=== PATIENT | male | born 1940 | race Caucasian/White ===

== ENCOUNTER 2017-08-08 20:04 | Day surgery (SDC) | payer MEDICARE ==
[~2017-08-08] VITALS: Ht 177.8 cm; Wt 92.0 kg
[2017-08-08 16:15] VITALS: BP 131/80
[2017-08-08 16:49] LABS: MICROSCOPIC NOT IND
[2017-08-08] MEDS: FENTANYL PF 100 MCG/2ML IV PRN ×2 (18:43→18:55)
[~2017-08-08 20:04] MED LIST: ACETAMINOPHEN 325 MG TABLET PO PRN; ALBUTEROL SULFATE 2.5 MG/3 ML NPPB PRN; ALLO100T64 PO; ALLO300T80 PO; CEFAZOLIN 1,000 MG ONE; DESMOPRESSIN 28 MCG in SODIUM CHLORIDE 0.9% 50 ML IVPB ONE; DEXAMETHASONE 4 MG/ML, 1ML ONE; FENTANYL PF 100 MCG/2ML ONE; GLUC1CAP48 PO; LABETALOL 5MG/ML, 20ML IV PRN; LACTATED RINGERS 1,000 ML IV SCH; LEVO75TA5 PO; LISI2.5T PO; MEPERIDINE/PF 25MG/0.5ML IVPush PRN; MIDAZOLAM 1 MG/ML, 2ML IV PRN; MIDAZOLAM 1 MG/ML, 2ML ONE; MITOMYCIN 40 MG, WATER FOR INJECTION,STERILE 40 ML in SYRINGE 1 EA INTVESIC ONE; MULT-257 PO; ONDANSETRON 2MG/ML, 2ML IVPush PRN; ONDANSETRON 2MG/ML, 2ML ONE; OXYcodone 5 MG/5 ML ORAL.SOL UDC ONE; OXYcodone 5 MG/5 ML ORAL.SOL UDC PO PRN; PROMETHAZINE 12.5 MG SUPP PR PRN; PROPOFOL 10 MG/ML, 20ML ONE; ROCURONIUM 10 MG/ML,10ML ONE; SIMV5TAB5 PO; SUCCINYLCHOLINE 20 MG/ML, 10ML ONE; VASOPRESSIN 20 UNIT/ML, 1ML ONE; hydrALAzine 20 MG/ML, 1ML IV PRN; morphine SULFATE 10 MG/ML, 1ML IV PRN
== END 2017-08-08 23:25 | disposition home or self-care (01) ==
LOC: OUT 20:04 → 4NOR 20:10 → OUT 23:25
PROVIDERS: ATTEND Student in an Organized Health Care Education/Training Program
DX: C67.0 Malignant neoplasm of trigone of bladder (principal); N32.89 Other specified disorders of bladder; R31.0 Gross hematuria; Z79.899 Other long term (current) drug therapy; I10 Essential (primary) hypertension; E03.8 Other specified hypothyroidism; E78.4 Other hyperlipidemia
CPT/HCPCS: 51720; 52235; 81003; 87086; 88305; 93005; J0330; J0690; J1100; J2250; J2405; J2704; J3010; J7120; 88341; 88342; G0461

== ENCOUNTER → 2017-08-24 | Outpatient (CLI) | payer MEDICARE ==
[~2017-08-24] MED LIST changes: -ACETAMINOPHEN 325 MG TABLET PO PRN; -ALBUTEROL SULFATE 2.5 MG/3 ML NPPB PRN; -CEFAZOLIN 1,000 MG ONE; -DESMOPRESSIN 28 MCG in SODIUM CHLORIDE 0.9% 50 ML IVPB ONE; -DEXAMETHASONE 4 MG/ML, 1ML ONE; -FENTANYL PF 100 MCG/2ML ONE; -LABETALOL 5MG/ML, 20ML IV PRN; -LACTATED RINGERS 1,000 ML IV SCH; -MEPERIDINE/PF 25MG/0.5ML IVPush PRN; -MIDAZOLAM 1 MG/ML, 2ML IV PRN; -MIDAZOLAM 1 MG/ML, 2ML ONE; -MITOMYCIN 40 MG, WATER FOR INJECTION,STERILE 40 ML in SYRINGE 1 EA INTVESIC ONE; -ONDANSETRON 2MG/ML, 2ML IVPush PRN; -ONDANSETRON 2MG/ML, 2ML ONE; -OXYcodone 5 MG/5 ML ORAL.SOL UDC ONE; -OXYcodone 5 MG/5 ML ORAL.SOL UDC PO PRN; -PROMETHAZINE 12.5 MG SUPP PR PRN; -PROPOFOL 10 MG/ML, 20ML ONE; -ROCURONIUM 10 MG/ML,10ML ONE; -SUCCINYLCHOLINE 20 MG/ML, 10ML ONE; -VASOPRESSIN 20 UNIT/ML, 1ML ONE; -hydrALAzine 20 MG/ML, 1ML IV PRN; -morphine SULFATE 10 MG/ML, 1ML IV PRN
== END | disposition home or self-care (01) ==
LOC: PETCFH 08:56
PROVIDERS: ATTEND Student in an Organized Health Care Education/Training Program
DX: C67.9 Malignant neoplasm of bladder, unspecified (principal); N28.1 Cyst of kidney, acquired; J98.4 Other disorders of lung; K57.30 Diverticulosis of large intestine without perforation or abscess without bleeding
CPT/HCPCS: 78815; A9552

== ENCOUNTER → 2018-01-18 | Outpatient (CLI) | payer MEDICARE ==
[~2018-01-18] MED LIST changes: +OMNIPAQUE 350 MG/ML, 100ML BOTTLE ONE
[2018-01-18 11:27] LABS: BASOPHILS # (AUTO) 0.02 x10^3/uL (0-0.1); BASOPHILS % (AUTO) 0 % (0-1); EOSINOPHILS # (AUTO) 0.12 x10^3/uL (0-0.4); EOSINOPHILS % (AUTO) 2 % (1-7); LYMPHOCYTES # (AUTO) 1.75 x10^3/uL (1-3.4); LYMPHOCYTES % (AUTO) 30 % (22-44); MD NO; MEAN CORPUSCULAR HEMOGLOBIN 28.4 pg (27.5-34.5); MEAN CORPUSCULAR HGB CONC 33.3 g/dL (33.2-36.2); MEAN CORPUSCULAR VOLUME 85.3 fL (81-97); MEAN PLATELET VOLUME 9.1 fL (7.4-10.4); MONOCYTES # (AUTO) 0.49 x10^3/uL (0.2-0.8); MONOCYTES % (AUTO) 8 % (2-9); NEUTROPHILS # (AUTO) 3.42 x10^3/uL (1.8-6.8); NEUTROPHILS % (AUTO) 59 % (42-75); PLATELET COUNT 201 x10^3/uL (130-400); RED BLOOD COUNT 5.49 x10^6/uL (4.38-5.82); RED CELL DISTRIBUTION WIDTH 14.7 % (9.4-14.8)
[2018-01-18 12:30] LABS: ALANINE AMINOTRANSFERASE 18 U/L (12-78); ANION GAP 5 mmol/L (5-15); CALCIUM 9.3 mg/dL (8.5-10.1); CHLORIDE 106 mmol/L (98-107)
[2018-01-18 12:32] LABS: ALKALINE PHOSPHATASE 88 U/L (45-117); BILIRUBIN,TOTAL 0.4 mg/dL (0.2-1.0); TOTAL PROTEIN 7.6 g/dL (6.4-8.2)
== END | disposition home or self-care (01) ==
LOC: RAD 10:31
PROVIDERS: ATTEND Internal Medicine
DX: I31.8 Other specified diseases of pericardium (principal); I25.10 Atherosclerotic heart disease of native coronary artery without angina pectoris; C67.9 Malignant neoplasm of bladder, unspecified; Z79.899 Other long term (current) drug therapy
CPT/HCPCS: 36415; 71250; 74178; 80053; 82306; 82607; 84153; 85025; 87086; 88112; Q9967; G0103